=== PATIENT | female | born 1945 | race Caucasian/White ===

== ENCOUNTER 2019-04-21 22:53 | Inpatient (IN) | payer OTHER, MEDICAID ==
[~2019-04-21] VITALS: Ht 157.5 cm; Wt 65.9 kg
[2019-04-21] MEDS ORDERED: DILTIAZEM HCL 25 MG IV ONE (23:07)
[2019-04-21] MEDS ORDERED: DILTIAZEM HCL 25 MG IV IV ONE (23:15)
--- NOTE | 2019-04-21 23:20 | NUR ---
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 PATIENT IS AMBULATORY WITH ROLLING WALKER, ABLE TO SPEAK IN FULL SENTENCES. PLACED PATIENT ON TELE AND O2 MONITOR, EKG DONE.
[2019-04-21 23:30] LABS: BASOPHILS # (AUTO) 0.1 K/uL (0.0-8.0); BASOPHILS % (AUTO) 0.8 % (0.0-2.0); EOSINOPHILS # (AUTO) 0.1 K/uL (0.0-0.7); EOSINOPHILS % (AUTO) 1.4 % (0.0-7.0); HEMOGLOBIN 12.2 g/dL (10.9-14.3); LYMPHOCYTES # (AUTO) 2.4 K/uL (20.0-40.0); LYMPHOCYTES % (AUTO) 32.9 % (20.5-51.5); MEAN CORPUSCULAR HGB CONC 33 g/dL (32.3-35.6); MEAN CORPUSCULAR VOLUME 100.2 fL (75.5-95.3); MONOCYTES # (AUTO) 0.7 K/uL (2.0-10.0); MONOCYTES % (AUTO) 9.6 % (0.0-11.0); NEUTROPHILS # (AUTO) 4.1 K/uL (1.8-8.9); NEUTROPHILS % (AUTO) 55.3 % (38.5-71.5); PLATELET COUNT (AUTO) 180 K/uL (179-408); WHITE BLOOD COUNT (AUTO) 7.4 K/uL (3.8-11.8)
[2019-04-21 23:39] LABS: CARBON DIOXIDE 21 mmol/L (21-32); CHLORIDE 99 mmol/L (98-107); CREATININE 1.4 mg/dL (0.6-1.3); GLUCOSE 108 mg/dL (74-106); POTASSIUM 3.7 mmol/L (3.5-5.1); UREA NITROGEN, BLOOD 20 mg/dL (7-18)
[2019-04-21 23:51] LABS: ALANINE AMINOTRANSFERASE 20 U/L (14-59); ALKALINE PHOSPHATASE 143 U/L (50-136); ASPARTATE AMINOTRANSFERASE 14 U/L (15-37); BILIRUBIN,DIRECT 0.3 mg/dL (0.0-0.2); TOTAL PROTEIN, SERUM 7.6 g/dL (6.4-8.2)
[2019-04-21] MEDS ORDERED: FLUT1BLS IH (23:51)
[2019-04-21] MEDS ORDERED: ALBU8.5H8 IH (23:51)
[2019-04-21] MEDS ORDERED: LOSA1TAB39 PO (23:51)
--- NOTE | 2019-04-22 00:21 | NUR ---
PATIENT AMBULATED TO BATHROOM WITH STAND BY ASSIST, VOIDED 300ML OF MADDIE COLOR URINE.
[2019-04-22 01:21] LABS: *BILIRUBIN,URIN NEGATIVE (NEGATIVE); *BLOOD, URINE NEGATIVE (NEGATIVE); *CLARITY,URINE CLEAR (CLEAR); *COLOR,URINE YELLOW (YELLOW); *KETONES,URINE NEGATIVE (NEGATIVE); *UROBILINOGEN,URINE 0.2 E.U./dl (NORMAL); LEUKOCYTE ESTERASE ,URINE NEGATIVE (NEGATIVE); NITRITE, URINE NEGATIVE (NEGATIVE); PH,URINE 5.5 (5.0-8.0); UGLUCOSE NEGATIVE (NEGATIVE)
[2019-04-22] MEDS ORDERED: ACETAMINOPHEN 325 MG TABLET PO PRN (01:30)
[2019-04-22] MEDS ORDERED: TEMAZEPAM 15 MG CAPSULE PO PRN (01:30)
[2019-04-22] MEDS ORDERED: MAGNESIUM HYDROXIDE 30 ML LIQUID UDC PO PRN (01:30)
[2019-04-22] MEDS ORDERED: ONDANSETRON 4 MG/2 ML VIAL IV PRN (01:30)
[2019-04-22] MEDS ORDERED: DILTIAZEM HCL 25 MG IV IV PRN (01:30)
[2019-04-22] MEDS ORDERED: DILTIAZEM HCL 25 MG IV ONE ×2 (01:42→02:20)
--- NOTE | 2019-04-22 01:48 | NUR ---
5MG DILTIAZEM IVP GIVEN PER VERBAL ORDER FROM DR. CARO.
[2019-04-22] MEDS ORDERED: DILTIAZEM HCL 25 MG IV IV ONE (02:00)
[2019-04-22] MEDS ORDERED: DILTIAZEM HCL 50 MG IV ONE (02:20)
--- NOTE | 2019-04-22 08:00 | NUR ---
AWAKE ALERT AND ORIENTED X3 NO SS OFF SEVERE PAIN, CHEST PAIN WITH CARDIZEM DRIP AT 5MG PER HOUR. ST AT 105/MIN
--- NOTE | 2019-04-22 08:11 | NUR ---
SEE DOWNTIME OVERRIDE PAPER WORK TRANSPORTED AT 0430 A TO ROOM 311 VIA [facility] BY RN ALL BELONGINGS W/ PT
[2019-04-22] MEDS ORDERED: METOPROLOL TARTRATE 25 MG TABLET PO SCH (09:00)
[2019-04-22] MEDS ORDERED: FUROSEMIDE 40 MG/4 ML VIAL IV SCH (09:00)
[2019-04-22] MEDS: METOPROLOL TARTRATE 25 MG TABLET PO SCH ×3 (09:54→21:01)
[2019-04-22] MEDS: ASPIRIN 81 MG TAB.CHEW PO SCH (09:54)
[2019-04-22] MEDS: PIPERACILLIN SODIUM/TAZOBACTAM 3.375 G in IV DEXTROSE 5% 50 ML IV SCH ×2 (11:04→18:03)
[2019-04-22] MEDS: FLUTICASONE/VILANTEROL 1 EACH BLST.W.DEV IH SCH (11:05)
[2019-04-22 12:00] VITALS: BP 117/81
--- NOTE | 2019-04-22 12:00 | NUR ---
SEEN BY DR MON[place] FOR CARDIOLOGY FOLLOW-UP REVIEWED MEDS AND SAID TO DC PANKAJ MONTES AND CONTINUE PANKAJ AND TONY ORDERED
--- NOTE | 2019-04-22 15:52 | NUR ---
CONTINUE NPO STATUS, IV ANTIBIOTICS ZOSYN NO ADVERSE REACTION, REMAINS UNCONTROLLED AFIB ON MONITOR 105-120/MIN
[2019-04-22 16:08] VITALS: BP 121/74
--- NOTE | 2019-04-22 19:30 | NUR ---
SBAR received from overnight stocker nurse. Patient alert and oriented x 2. Patient stated to be homeless from off going nurse, but patient will not speak to it during assessment. Patient on antibiotics. Telemetry maintained for A-Fib with HR <110. No C/O pain or SOB at this time. No skin problems noted at this time. Call light and frequently used items within reach. Will continue to monitor.
[2019-04-22 21:07] VITALS: BP 120/75
[2019-04-23 00:22] VITALS: BP 131/59
[2019-04-23] MEDS: METOPROLOL TARTRATE 25 MG TABLET PO SCH ×2 (02:55→08:40)
[2019-04-23] MEDS: PIPERACILLIN SODIUM/TAZOBACTAM 3.375 G in IV DEXTROSE 5% 50 ML IV SCH ×3 (02:56→18:00)
[2019-04-23] MEDS: HYDROCODONE/APAP 5-325MG TABLET PO PRN ×2 (03:36→16:27)
[2019-04-23 04:19] VITALS: BP 105/50
[2019-04-23 06:21] LABS: BASOPHILS # (AUTO) 0.1 K/uL (0.0-8.0); BASOPHILS % (AUTO) 0.9 % (0.0-2.0); EOSINOPHILS # (AUTO) 0.1 K/uL (0.0-0.7); EOSINOPHILS % (AUTO) 2.1 % (0.0-7.0); HEMATOCRIT 36.6 % (31.2-41.9); HEMOGLOBIN 12.2 g/dL (10.9-14.3); LYMPHOCYTES # (AUTO) 1.5 K/uL (20.0-40.0); LYMPHOCYTES % (AUTO) 21.7 % (20.5-51.5); MEAN CORPUSCULAR HEMOGLOBIN 33.5 uug (24.7-32.8); MEAN CORPUSCULAR HGB CONC 33 g/dL (32.3-35.6); MEAN CORPUSCULAR VOLUME 100.6 fL (75.5-95.3); MONOCYTES # (AUTO) 0.7 K/uL (2.0-10.0); MONOCYTES % (AUTO) 9.9 % (0.0-11.0); NEUTROPHILS # (AUTO) 4.6 K/uL (1.8-8.9); NEUTROPHILS % (AUTO) 65.4 % (38.5-71.5); PLATELET COUNT (AUTO) 192 K/uL (179-408); RED BLOOD CELL COUNT(AUTO) 3.64 MIL/uL (3.63-4.92); WHITE BLOOD COUNT (AUTO) 7.1 K/uL (3.8-11.8)
--- NOTE | 2019-04-23 06:38 | NUR ---
Patient A-Fib with HR ranging from 105-120. Jansen given to aid with abdominal discomfort. IV intact in right wrist 22G. Zosyn given for antibiotic therapy. Call light and frequently used items within reach. Will endorse to oncoming shift accordingly.
[2019-04-23 06:42] LABS: CARBON DIOXIDE 24 mmol/L (21-32); CHLORIDE 103 mmol/L (98-107); CREATININE 1.7 mg/dL (0.6-1.3); GLUCOSE 144 mg/dL (74-106); MAGNESIUM 1.3 mg/dL (1.8-2.4); PHOSPHOROUS 4.2 mg/dL (2.5-4.9); POTASSIUM 3.8 mmol/L (3.5-5.1); UREA NITROGEN, BLOOD 21 mg/dL (7-18)
--- NOTE | 2019-04-23 08:00 | NUR ---
AWAKE ALERT AND ORIENTED X3 NO SS OF PAIN OR DISTRESS REMAINS AFIB UNCONTROLLED IN MONITOR
[2019-04-23] MEDS: FLUTICASONE/VILANTEROL 1 EACH BLST.W.DEV IH SCH (08:39)
[2019-04-23] MEDS: CYANOCOBALAMIN 1000 MCG/ML VIAL IM SCH (08:39)
[2019-04-23] MEDS: ASPIRIN 81 MG TAB.CHEW PO SCH (08:40)
[2019-04-23] MEDS: MAGNESIUM SULFATE/D5W 100 ML IV SCH ×2 (09:06→10:04)
[2019-04-23] MEDS ORDERED: DIGOXIN 250 MCG TABLET PO ONE ×3 (11:00→23:00)
[2019-04-23 11:38] VITALS: BP 114/69
--- NOTE | 2019-04-23 12:00 | NUR ---
SEEN BY DR SMITH FOR FOLLOW-UP NOTED LABS WITH LOW MAGNESIUM SEE NOTES.
--- NOTE | 2019-04-23 14:05 | NUR ---
DISCHARGE PLANNING IN PROCESS, SEE MARBLE SUPERVISOR NOTES
[2019-04-23 14:18] LABS: *BILIRUBIN,URIN NEGATIVE (NEGATIVE); *BLOOD, URINE NEGATIVE (NEGATIVE); *CLARITY,URINE CLEAR (CLEAR); *COLOR,URINE YELLOW (YELLOW); *KETONES,URINE NEGATIVE (NEGATIVE); *UROBILINOGEN,URINE 0.2 E.U./dl (NORMAL); LEUKOCYTE ESTERASE ,URINE 1+ (NEGATIVE); NITRITE, URINE NEGATIVE (NEGATIVE); UGLUCOSE NEGATIVE (NEGATIVE)
[2019-04-23 14:26] LABS: *CREATININE,URINE 57.8 mg/dL (30-125); *URINE TOTAL PROTEIN RANDOM 22.6 mg/dL (<150/24HR)
[2019-04-23] MEDS: METOPROLOL TARTRATE 50 MG TABLET PO SCH ×2 (14:36→21:13)
[2019-04-23] MEDS ORDERED: METOPROLOL TARTRATE 25 MG TABLET PO SCH (15:00)
[2019-04-23 15:08] LABS: SQUAMOUS EPITHELIAL CELL,UR FEW /HPF (NONE SEEN)
[2019-04-23 15:14] VITALS: BP 123/77
--- NOTE | 2019-04-23 19:20 | NUR ---
Received patient lying in bed. AAOX4. In no acute distress. Denies any pain or SOB. IV site on right hand intact and patent. Controlled A. fib on tele at 88/min. Needs assessed and attended to. Safety measure initiated and call dinero within reached.
[2019-04-23 20:29] VITALS: BP 119/82
[2019-04-24] VITALS: BP 108/70
[2019-04-24] MEDS: METOPROLOL TARTRATE 50 MG TABLET PO SCH ×4 (02:15→20:41)
[2019-04-24] MEDS: PIPERACILLIN SODIUM/TAZOBACTAM 3.375 G in IV DEXTROSE 5% 50 ML IV SCH ×3 (02:15→19:32)
[2019-04-24 06:01] LABS: BASOPHILS # (AUTO) 0.1 K/uL (0.0-8.0); BASOPHILS % (AUTO) 0.7 % (0.0-2.0); EOSINOPHILS # (AUTO) 0.1 K/uL (0.0-0.7); EOSINOPHILS % (AUTO) 1.4 % (0.0-7.0); HEMATOCRIT 37.7 % (31.2-41.9); HEMOGLOBIN 12.4 g/dL (10.9-14.3); LYMPHOCYTES # (AUTO) 1.2 K/uL (20.0-40.0); LYMPHOCYTES % (AUTO) 13.9 % (20.5-51.5); MEAN CORPUSCULAR HEMOGLOBIN 32.9 uug (24.7-32.8); MEAN CORPUSCULAR HGB CONC 33 g/dL (32.3-35.6); MONOCYTES # (AUTO) 0.9 K/uL (2.0-10.0); MONOCYTES % (AUTO) 10.3 % (0.0-11.0); NEUTROPHILS # (AUTO) 6.3 K/uL (1.8-8.9); NEUTROPHILS % (AUTO) 73.7 % (38.5-71.5); PLATELET COUNT (AUTO) 193 K/uL (179-408); RED BLOOD CELL COUNT(AUTO) 3.77 MIL/uL (3.63-4.92); WHITE BLOOD COUNT (AUTO) 8.6 K/uL (3.8-11.8)
--- NOTE | 2019-04-24 06:16 | NUR ---
AAOX4. In no acute distress. Complained of lower abdominal pain but tolerable per patient. Denies SOB. IV site on right hand intact and patent. No adverse effect noted from IV ABX. Controlled A. fib on tele at 99/min. Safety measure maintained and call dinero within reached.
[2019-04-24 06:26] LABS: ALANINE AMINOTRANSFERASE 9 U/L (14-59); ALKALINE PHOSPHATASE 102 U/L (50-136); ASPARTATE AMINOTRANSFERASE 9 U/L (15-37); BILIRUBIN,TOTAL 1.3 mg/dL (0.2-1.0); CARBON DIOXIDE 22 mmol/L (21-32); CHLORIDE 102 mmol/L (98-107); CREATINE KINASE, TOTAL 46 U/L (26-192); CREATININE 1.6 mg/dL (0.6-1.3); GLUCOSE 105 mg/dL (74-106); MAGNESIUM 1.7 mg/dL (1.8-2.4); POTASSIUM 4.1 mmol/L (3.5-5.1); TOTAL PROTEIN, SERUM 6.3 g/dL (6.4-8.2); UREA NITROGEN, BLOOD 17 mg/dL (7-18)
[2019-04-24 06:30] VITALS: BP 136/80
--- NOTE | 2019-04-24 08:00 | NUR ---
AWAKE AND ALERT, ORIENTED X3 C/O FEELING NAUSEA AND LOWER ABDOMINAL PAIN. REFUSED BREAKFAST. MEDICATED WITH WITH ZOFRAN WITH TEMPORARY RELIEF. OBSERVED. REMAINS AFIB CONTROLLED
[2019-04-24] MEDS: ASPIRIN 81 MG TAB.CHEW PO SCH (08:34)
[2019-04-24] MEDS: CYANOCOBALAMIN 1000 MCG/ML VIAL IM SCH (08:34)
[2019-04-24] MEDS: FLUTICASONE/VILANTEROL 1 EACH BLST.W.DEV IH SCH (08:41)
[2019-04-24] MEDS ORDERED: FUROSEMIDE 20 MG/2 ML VIAL IV SCH (09:00)
--- NOTE | 2019-04-24 09:00 | NUR ---
SEEN BY DR AVITIA FOR NEPHRO FOLLOW-UP SEE NOTES
[2019-04-24] MEDS ORDERED: MAGNESIUM OXIDE 400 MG TABLET PO ONE (09:30)
[2019-04-24 11:04] VITALS: BP 111/61
--- NOTE | 2019-04-24 13:44 | NUR ---
STILL C/O PAIN 3/10 LOWER ABDOMEN, REFUSED PAIN MEDS AND LUNCH. OBSERVED
[2019-04-24 15:02] VITALS: BP 124/65
--- NOTE | 2019-04-24 17:47 | NUR ---
NO ACUTE PAIN, NAUSEA OR VOMITING. REMAINS CONTROLLED AFIB ON MONITOR
--- NOTE | 2019-04-24 19:30 | NUR ---
RECEIVED PATIENT LYING IN BED, AWAKE. AO X 4. NO ACUTE DISTRESS AT THE MOMENT. NO SOB. DENIES PAIN/ DISCOMFORT. IV ON RIGHT HAND PATENT, INTACT, AND FLUSHING. TELE MONITOR SHOWS CONTROLLED A. FIB. IMMEDIATE NEEDS ATTENDED. SAFETY PROTOCOLS IN PLACE. CALL LIGHT WITHIN REACH. WILL CONTINUE TO MONITOR.
[2019-04-24 20:00] VITALS: BP 109/52
[2019-04-25] VITALS: BP 135/68
[2019-04-25] MEDS: PIPERACILLIN SODIUM/TAZOBACTAM 3.375 G in IV DEXTROSE 5% 50 ML IV SCH (02:56)
[2019-04-25 04:00] VITALS: BP 155/80
--- NOTE | 2019-04-25 05:13 | NUR ---
PATIENT SLEPT THROUGHOUT THE NIGHT. NO COMPLAINTS OF PAIN. VITAL SIGNS WITHIN NORMAL. CONTROLLED A. FIB ON THE TELE MONITOR. WILL ENDORSE TO ONCOMING SHIFT.
--- NOTE | 2019-04-25 08:00 | NUR ---
Received patient awake in bed. AAOx4. IV on R hand intact and patent. In no acute distress. Complaining of pain at this time, but verbalizes she is okay and does not need medication. Safety measures implemented. Will continue to monitor.
[2019-04-25 08:14] LABS: BASOPHILS # (AUTO) 0.1 K/uL (0.0-8.0); BASOPHILS % (AUTO) 0.7 % (0.0-2.0); EOSINOPHILS # (AUTO) 0.2 K/uL (0.0-0.7); EOSINOPHILS % (AUTO) 2.3 % (0.0-7.0); HEMATOCRIT 39.2 % (31.2-41.9); HEMOGLOBIN 12.9 g/dL (10.9-14.3); LYMPHOCYTES # (AUTO) 1.8 K/uL (20.0-40.0); LYMPHOCYTES % (AUTO) 22.5 % (20.5-51.5); MEAN CORPUSCULAR HEMOGLOBIN 32.9 uug (24.7-32.8); MEAN CORPUSCULAR HGB CONC 33 g/dL (32.3-35.6); MONOCYTES # (AUTO) 0.8 K/uL (2.0-10.0); MONOCYTES % (AUTO) 10.1 % (0.0-11.0); NEUTROPHILS # (AUTO) 5.1 K/uL (1.8-8.9); NEUTROPHILS % (AUTO) 64.4 % (38.5-71.5); PLATELET COUNT (AUTO) 180 K/uL (179-408); RED BLOOD CELL COUNT(AUTO) 3.92 MIL/uL (3.63-4.92)
[2019-04-25] MEDS ORDERED: FUROSEMIDE 20 MG TABLET PO SCH (09:00)
[2019-04-25] MEDS: METOPROLOL TARTRATE 50 MG TABLET PO SCH (09:00)
[2019-04-25] MEDS: CYANOCOBALAMIN 1000 MCG/ML VIAL IM SCH (09:22)
[2019-04-25] MEDS: ASPIRIN 81 MG TAB.CHEW PO SCH (09:22)
[2019-04-25] MEDS: FLUTICASONE/VILANTEROL 1 EACH BLST.W.DEV IH SCH (09:22)
[2019-04-25 09:34] LABS: CARBON DIOXIDE 23 mmol/L (21-32); CHLORIDE 102 mmol/L (98-107); CREATININE 1.6 mg/dL (0.6-1.3); GLUCOSE 93 mg/dL (74-106); POTASSIUM 3.7 mmol/L (3.5-5.1); UREA NITROGEN, BLOOD 14 mg/dL (7-18)
[2019-04-25 09:40] LABS: ALANINE AMINOTRANSFERASE 10 U/L (14-59); ALKALINE PHOSPHATASE 87 U/L (50-136); ASPARTATE AMINOTRANSFERASE 10 U/L (15-37); BILIRUBIN,TOTAL 1.1 mg/dL (0.2-1.0); MAGNESIUM 1.7 mg/dL (1.8-2.4); PHOSPHOROUS 4.1 mg/dL (2.5-4.9); TOTAL PROTEIN, SERUM 6.4 g/dL (6.4-8.2)
[2019-04-25 11:04] VITALS: BP 109/56
[2019-04-25] MEDS ORDERED: POTA10CA43 PO (11:08)
[2019-04-25] MEDS ORDERED: MULT1TAB73 PO (11:08)
[2019-04-25] MEDS ORDERED: ACID1TAB4 PO (11:08)
[2019-04-25] MEDS ORDERED: CEPH-570 PO (11:08)
[2019-04-25] MEDS ORDERED: DILT240C88 PO (11:08)
[2019-04-25] MEDS ORDERED: FURO20TA4 PO (11:08)
[2019-04-25] MEDS ORDERED: METO50TA16 PO (11:08)
[2019-04-25] MEDS ORDERED: APIX2.5T PO (11:16)
[2019-04-25] MEDS ORDERED: APIXABAN 5 MG TABLET PO ONE (11:30)
--- NOTE | 2019-04-25 12:45 | NUR ---
Discharge orders in place. Patient accepted at [facility]. Transportation arranged by receiving facility. Educated patient regarding new prescription and importance on continuity of care/following medication regimen. Patient verbalized understanding. Provided resources and referrals. Valuables, medications and contraband returned. Vital signs are stable. No s/s of acute distress. Warm handoff given to receiving facility
[2019-04-28 10:12] LABS: A/G RATIO 0.9 (0.7-1.7); ALBUMIN 2.6 g/dL (2.9-4.4); ALPHA-1-GLOBULIN 0.2 g/dL (0.0-0.4); ALPHA-2-GLOBULIN 0.8 g/dL (0.4-1.0); BETA GLOBULIN 0.9 g/dL (0.7-1.3); M-SPIKE Not Observed g/dL (Not Observed)
== END 2019-04-25 12:45 | disposition home health service (06) | DRG 280 ==
LOC: ER 22:53 → UNDOADMIN 04-22 04:45 → TELE-TD3 04-22 04:45 → TELE3 04-22 04:45 → UNDOADMIN 04-22 08:24 → TELE3 04-22 18:20
PROVIDERS: ADMIT Internal Medicine; ATTEND Internal Medicine
PROC: 3E033RZ Introduction of Antiarrhythmic into Peripheral Vein, Percutaneous Approach (ICD-10-PCS; principal; 2019-04-22)
DX: I48.20 Chronic atrial fibrillation, unspecified (principal); I21.A1 Myocardial infarction type 2; N17.0 Acute kidney failure with tubular necrosis; I50.23 Acute on chronic systolic (congestive) heart failure; K80.00 Calculus of gallbladder with acute cholecystitis without obstruction; D68.59 Other primary thrombophilia; N39.0 Urinary tract infection, site not specified; J98.11 Atelectasis; Z59.0 Homelessness; D25.9 Leiomyoma of uterus, unspecified; Z74.09 Other reduced mobility; Z87.891 Personal history of nicotine dependence; Z86.73 Personal history of transient ischemic attack (TIA), and cerebral infarction without residual deficits; K57.30 Diverticulosis of large intestine without perforation or abscess without bleeding; I08.1 Rheumatic disorders of both mitral and tricuspid valves; J44.9 Chronic obstructive pulmonary disease, unspecified; Z87.440 Personal history of urinary (tract) infections; I11.0 Hypertensive heart disease with heart failure; E03.9 Hypothyroidism, unspecified; G89.29 Other chronic pain; M51.17 Intervertebral disc disorders with radiculopathy, lumbosacral region; M41.9 Scoliosis, unspecified; Z79.51 Long term (current) use of inhaled steroids
CPT/HCPCS: 36415; 70030-TC; 71045; 76604; 76705; 83605; 83735; 83970; 84100; 84155; 84156; 84165; 84300; 84443; 85025; 85730; 87086; 93005; 93307; A4663; G0378; J1940; J2405; J2543; J3420; J3475; J3490; J7050; J7060

== ENCOUNTER 2019-06-09 09:06 | Inpatient (IN) | payer MEDICAID, OTHER ==
[~2019-06-09] VITALS: Ht 152.4 cm; Wt 65.8 kg
[2019-06-09] VITALS (15 sets, daily range): BP systolic 105–138; BP diastolic 62–95
[2019-06-09] MEDS ORDERED: DILTIAZEM HCL 25 MG IV ONE (09:23)
[2019-06-09] MEDS: ASPIRIN 81 MG TAB.CHEW PO ONE ×2 (09:30→09:35)
[2019-06-09] MEDS ORDERED: DILTIAZEM HCL 25 MG IV IV ONE ×2 (09:30→10:00)
[2019-06-09] MEDS ORDERED: ASPIRIN 81 MG TAB.CHEW ONE (09:31)
[2019-06-09 09:39] LABS: BASOPHILS # (AUTO) 0.1 K/uL (0.0-8.0); BASOPHILS % (AUTO) 0.7 % (0.0-2.0); EOSINOPHILS # (AUTO) 0.1 K/uL (0.0-0.7); HEMATOCRIT 41.7 % (31.2-41.9); LYMPHOCYTES # (AUTO) 1.7 K/uL (20.0-40.0); LYMPHOCYTES % (AUTO) 22.2 % (20.5-51.5); MEAN CORPUSCULAR HEMOGLOBIN 33.3 uug (24.7-32.8); MEAN CORPUSCULAR HGB CONC 33 g/dL (32.3-35.6); MEAN CORPUSCULAR VOLUME 99.4 fL (75.5-95.3); MONOCYTES # (AUTO) 0.7 K/uL (2.0-10.0); NEUTROPHILS # (AUTO) 5.1 K/uL (1.8-8.9); NEUTROPHILS % (AUTO) 67.1 % (38.5-71.5); PLATELET COUNT (AUTO) 195 K/uL (179-408); WHITE BLOOD COUNT (AUTO) 7.6 K/uL (3.8-11.8)
[2019-06-09 09:42] LABS: CARBON DIOXIDE 19 mmol/L (21-32); CHLORIDE 99 mmol/L (98-107); CREATININE 1.5 mg/dL (0.6-1.3); GLUCOSE 130 mg/dL (74-106); POTASSIUM 4.4 mmol/L (3.5-5.1); UREA NITROGEN, BLOOD 21 mg/dL (7-18)
[2019-06-09 09:54] LABS: ALANINE AMINOTRANSFERASE 19 U/L (14-59); ALKALINE PHOSPHATASE 141 U/L (50-136); ASPARTATE AMINOTRANSFERASE 16 U/L (15-37); BILIRUBIN,DIRECT 0.6 mg/dL (0.0-0.2); TOTAL PROTEIN, SERUM 8.2 g/dL (6.4-8.2)
--- NOTE | 2019-06-09 09:59 | NUR ---
pt resting, axox4, says feels better.
[2019-06-09] MEDS ORDERED: DILTIAZEM HCL IV 125 MG in IV NORMAL SALINE 100 ML IV STA (10:20)
--- NOTE | 2019-06-09 10:47 | NUR ---
talked to [facility] gave the requested clinincal.
--- NOTE | 2019-06-09 11:39 | NUR ---
pt voided in the bedside commode. urine sent to lab
--- NOTE | 2019-06-09 11:49 | NUR ---
pt transfered to floor in stable condition.
--- NOTE | 2019-06-09 12:30 | NUR ---
ADMIT A 73 FEMALE PT FROM ER VIA [facility], WITH A CHIEF C/O SOB AND CHEST PAIN. HEART HYTHM IS ATRIAL FIB WITH RVR IN THE 130'S TO 140'S. PT IS AWAKE , ALERT AND ORIENTED X3. VERY PLEASANT AND IN GOOD SPIRIT. PT ON CARDIZEM DRIP RUNNING AT 5MG/HR. HR RFA. HR IS PERSISTENTLY AFIB WITH RVR AT THIS TIME. NO C.O CHEST PAINS AT THIS TIME. PT ON O2 AT 3L NC, O2 SAT IS 96-98%. NO APPARENT SOB NOTED. NO COUGHS. LUNS ARE CLES WITH DIMINISHED BS AT THE BASES. NO C/O OF ANY PAIN AT THIS TIME.
--- NOTE | 2019-06-09 13:30 | NUR ---
SEEN AND EXAMINED BY ZEN PINEDA DNP WITH NEW ADMITTING ORDERS.
[2019-06-09] MEDS ORDERED: MAGNESIUM HYDROXIDE 30 ML LIQUID UDC PO PRN (13:45)
[2019-06-09] MEDS ORDERED: methylPREDNISolone SOD SUCC 125 MG/2 ML VIAL IV ONE (13:45)
[2019-06-09] MEDS ORDERED: HYDROCODONE/APAP 5-325MG TABLET PO PRN (13:45)
[2019-06-09] MEDS ORDERED: Z GUARD REMEDY PASTE 57 GM TUBE TOP PRN (13:45)
[2019-06-09] MEDS ORDERED: ACETAMINOPHEN 325 MG TABLET PO PRN (13:45)
[2019-06-09] MEDS ORDERED: ZOLPIDEM 5 MG TABLET PO PRN (13:45)
[2019-06-09] MEDS ORDERED: ONDANSETRON 4 MG/2 ML VIAL IV PRN (13:45)
[2019-06-09 15:05] LABS: *BILIRUBIN,URIN NEGATIVE (NEGATIVE); *BLOOD, URINE NEGATIVE (NEGATIVE); *CLARITY,URINE CLEAR (CLEAR); *COLOR,URINE YELLOW (YELLOW); *KETONES,URINE NEGATIVE (NEGATIVE); *UROBILINOGEN,URINE 0.2 E.U./dl (NORMAL); LEUKOCYTE ESTERASE ,URINE NEGATIVE (NEGATIVE); NITRITE, URINE NEGATIVE (NEGATIVE); UGLUCOSE NEGATIVE (NEGATIVE)
[2019-06-09 15:13] LABS: *AMPHETAMINE, URINE NEGATIVE (NEGATIVE); *BARBITURATE, URINE NEGATIVE (NEGATIVE); *CANNABINOID, URINE NEGATIVE (NEGATIVE); *COCCAINE, URINE NEGATIVE (NEGATIVE); *OPIATE, URINE NEGATIVE (NEGATIVE); *PHENCYCLIDINE SCREEN,URINE NEGATIVE (NEGATIVE)
[2019-06-09 15:45] LABS: MAGNESIUM 1.9 mg/dL (1.8-2.4)
[2019-06-09] MEDS: DILTIAZEM HCL IV 125 MG in IV NORMAL SALINE 100 ML IV PRN ×2 (15:53→20:21)
[2019-06-09] MEDS ORDERED: Medication Not On Formulary EA (Apixaban (Eliquis) 2.5 MG) PO SCH (17:00)
[2019-06-09] MEDS: CARVEDILOL 3.125 MG TABLET PO SCH (17:20)
[2019-06-09] MEDS: ACIDOPHILUS/BULGARICUS CHEW TAB PO SCH (17:20)
[2019-06-09] MEDS: ALBUTEROL SULFATE 2.5 MG/3 ML NEBU NEB PRN (17:27)
[2019-06-09] MEDS: APIXABAN 5 MG TABLET PO SCH (17:32)
--- NOTE | 2019-06-09 19:30 | NUR ---
rounds made patient in bed aaox4,maex4, afib on the heart monitor Cardizem drip in progress and titrated according to protocol .denies chest pain no sob on room air saturation 94 to 96 %.advised to call for assistance and not to get oob alone .
--- NOTE | 2019-06-09 20:30 | NUR ---
assisted oob to the commode ,voided freely ,yellowish urine adequate in amt . escorted abck to bed.
--- NOTE | 2019-06-09 21:36 | NUR ---
placed 02 nasal cannula at 3 l/min when off 02 patient desaturated to 88 to 90%.on 02 at 3 l/min saturation 96 to 98% .hob up
[2019-06-10] VITALS (31 sets, daily range): BP systolic 96–156; BP diastolic 44–100
--- NOTE | 2019-06-10 | NUR ---
sleeping in bed no s/s of respiratory distress tolerating 02 at 3 l/min . saturation 96 to 98 %.v/s wnl . Cardizem drip in progress infusing via the left hand h/l.
--- NOTE | 2019-06-10 02:30 | NUR ---
patient woke up and verbalized she always wakes up at this time .patient asked for jello . given strawberry jello and applejuice patient able to feed self . assisted to the commode voided . assisted with perineal care changed soiled linens and gown and escorted back tot bed .
[2019-06-10 05:57] LABS: BASOPHILS % (AUTO) 0.2 % (0.0-2.0); HEMATOCRIT 39.9 % (31.2-41.9); HEMOGLOBIN 13.3 g/dL (10.9-14.3); LYMPHOCYTES # (AUTO) 0.5 K/uL (20.0-40.0); LYMPHOCYTES % (AUTO) 14.4 % (20.5-51.5); MEAN CORPUSCULAR HEMOGLOBIN 33.1 uug (24.7-32.8); MEAN CORPUSCULAR HGB CONC 33 g/dL (32.3-35.6); MEAN CORPUSCULAR VOLUME 99.1 fL (75.5-95.3); MONOCYTES # (AUTO) 0.1 K/uL (2.0-10.0); MONOCYTES % (AUTO) 1.9 % (0.0-11.0); NEUTROPHILS # (AUTO) 3.1 K/uL (1.8-8.9); NEUTROPHILS % (AUTO) 83.5 % (38.5-71.5); PLATELET COUNT (AUTO) 151 K/uL (179-408); RED BLOOD CELL COUNT(AUTO) 4.03 MIL/uL (3.63-4.92); WHITE BLOOD COUNT (AUTO) 3.7 K/uL (3.8-11.8)
[2019-06-10 06:10] LABS: ALANINE AMINOTRANSFERASE 16 U/L (14-59); ALKALINE PHOSPHATASE 131 U/L (50-136); ASPARTATE AMINOTRANSFERASE 12 U/L (15-37); BILIRUBIN,TOTAL 1.3 mg/dL (0.2-1.0); CARBON DIOXIDE 19 mmol/L (21-32); CHLORIDE 102 mmol/L (98-107); CREATININE 1.5 mg/dL (0.6-1.3); GLUCOSE 199 mg/dL (74-106); PHOSPHOROUS 3.5 mg/dL (2.5-4.9); TOTAL PROTEIN, SERUM 7.7 g/dL (6.4-8.2); UREA NITROGEN, BLOOD 25 mg/dL (7-18)
[2019-06-10 06:19] LABS: THYROID STIMULATING HORMONE 1.252 mIU/mL (0.358-3.740)
[2019-06-10 06:24] LABS: CHOLESTEROL 186 mg/dL (<200); HDL CHOLESTEROL 58 mg/dL (40-60); TRIGLYCERIDES 85 MG/DL (30-150)
[2019-06-10] MEDS: ALBUTEROL SULFATE 2.5 MG/3 ML NEBU NEB PRN ×2 (07:10→20:24)
--- NOTE | 2019-06-10 07:30 | NUR ---
RECIEVED PT IN BED, AWAKE AND ORIENTED X3. IN GOOD SPIRIT AND PT LOVES TO TALK. HR STILL IN AFIB CONTROLLED TO UNCONTROLLED VENTRICULAR RESPONSE. DENIES ANY CHEST PAINS OR SOB. O2 ON 3LNC. SAT 96-98%. CARDIZEM DRIP RUNNING AT 5MG/HR VIA LT FA PATENT AND INTACT. SBP IS HOLDING GOOD. AFEBRILE.
[2019-06-10] MEDS: PANTOPRAZOLE SODIUM 40 MG TABLET.DR PO SCH (07:38)
[2019-06-10] MEDS: CARVEDILOL 3.125 MG TABLET PO SCH ×2 (07:39→17:13)
--- NOTE | 2019-06-10 08:30 | NUR ---
PT ATE GOOD BREAKFAST AND TOLERATED WELL.
[2019-06-10] MEDS ORDERED: Medication Not On Formulary EA (Multivitamins (Multivitamin) 1 EACH) PO SCH (09:00)
[2019-06-10] MEDS ORDERED: FUROSEMIDE 20 MG TABLET PO SCH (09:00)
[2019-06-10] MEDS ORDERED: methylPREDNISolone SOD SUCC 125 MG/2 ML VIAL IV SCH (09:00)
[2019-06-10] MEDS: MULTIVITAMINS,THERAPEUTIC TABLET PO SCH (09:04)
[2019-06-10] MEDS: ACIDOPHILUS/BULGARICUS CHEW TAB PO SCH ×2 (09:05→17:14)
[2019-06-10] MEDS: POTASSIUM CHLORIDE 10 MEQ TAB.PRT.SR PO SCH (09:05)
[2019-06-10] MEDS: FLUTICASONE/VILANTEROL 1 EACH BLST.W.DEV IH SCH (09:06)
[2019-06-10] MEDS: APIXABAN 5 MG TABLET PO SCH ×2 (09:07→17:16)
--- NOTE | 2019-06-10 10:20 | NUR ---
SEEN AND EVALUATED BY PT AT THE BEDSIDE.
--- NOTE | 2019-06-10 12:20 | NUR ---
SEEN AND EXAMINED BY DR ROSARIO WITH NEW ORDERS.
[2019-06-10] MEDS: DILTIAZEM HCL IV 125 MG in IV NORMAL SALINE 100 ML IV PRN (13:55)
--- NOTE | 2019-06-10 17:42 | NUR ---
SEEN AND EXAMINED BY DR SCHMID WITH NEW ORDERS.
--- NOTE | 2019-06-10 18:00 | NUR ---
COREG 3.125MG PO NOT GIVEN ORDERED. D/CD IT.
[2019-06-10] MEDS: FUROSEMIDE 40 MG/4 ML VIAL IV SCH (18:21)
[2019-06-10] MEDS: METOPROLOL TARTRATE 50 MG TABLET PO SCH (18:22)
--- NOTE | 2019-06-10 20:02 | NUR ---
rounds made patient in bed aaox4,maex4, able to verbalized needs .no respiratory distress noted tolerating 02 at 3 l min breathing even and unlabored saturation 98% rr 25.afib on the heart monitor on Cardizem drip t 10 mg/hr infusing via the left hand h/l .denies chest pain or chest discomfort .SCDS to ble used . advised patient to call using the call dinero placed with in reach .
[2019-06-10] MEDS: DILTIAZEM HCL CD 120 MG CAP.SR.24H PO SCH (20:13)
--- NOTE | 2019-06-10 20:20 | NUR ---
assisted oob to the bsc able to stand up steady of gait ,voided patient able to do perineal care .noted sob upon exertion and slight inspiratory wheezing noted ,rr 20 saturation 98% called respiratory therapist and gave patient breathing treatment .
--- NOTE | 2019-06-10 21:00 | NUR ---
off Cardizem drip ,now on Cardizem and metoprolol po continue to monitor bp and heart rhythm ,afib on the heart monitor rate form 70 to 90 occasionally to afib 101 not sustained .
--- NOTE | 2019-06-10 21:15 | NUR ---
assisted with dinner able to feed self only ate 50% fo the dinner tray . due medication given .Cardizem po
--- NOTE | 2019-06-10 22:30 | NUR ---
oob patient wants to used the bedside commode .voided freely . back to bed.connected back to equipment and monitors. call light placed with in reach .
[2019-06-11] VITALS (12 sets, daily range): BP systolic 104–134; BP diastolic 57–87
[2019-06-11] MEDS: METOPROLOL TARTRATE 50 MG TABLET PO SCH ×6 (00:59→21:04)
--- NOTE | 2019-06-11 01:08 | NUR ---
sleeping in bed v/s wnl . no respiratory distress breathing even and unlabored . rr 16 saturation 98% bp 125/77 hr 74 afib
--- NOTE | 2019-06-11 02:44 | NUR ---
patient awakened ,escorted to the bedside commode . voided freely .as per aptfrankn she always wakes up at this time assisted back to be .
--- NOTE | 2019-06-11 03:30 | NUR ---
voided freely via the bedside commode with yellowish urine ,had small to moderated brownish stool soft .patient able to washed self changed soiled linens patient able to do perineal care washed hands .back to bed patient wants to sleep more .
[2019-06-11] MEDS: PANTOPRAZOLE SODIUM 40 MG TABLET.DR PO SCH (06:09)
[2019-06-11 06:23] LABS: BASOPHILS % (AUTO) 0.1 % (0.0-2.0); HEMATOCRIT 37.3 % (31.2-41.9); HEMOGLOBIN 12.3 g/dL (10.9-14.3); LYMPHOCYTES # (AUTO) 0.5 K/uL (20.0-40.0); LYMPHOCYTES % (AUTO) 6.1 % (20.5-51.5); MEAN CORPUSCULAR HEMOGLOBIN 32.6 uug (24.7-32.8); MEAN CORPUSCULAR HGB CONC 33 g/dL (32.3-35.6); MONOCYTES # (AUTO) 0.4 K/uL (2.0-10.0); MONOCYTES % (AUTO) 4.4 % (0.0-11.0); NEUTROPHILS # (AUTO) 7.3 K/uL (1.8-8.9); NEUTROPHILS % (AUTO) 89.4 % (38.5-71.5); PLATELET COUNT (AUTO) 170 K/uL (179-408); RED BLOOD CELL COUNT(AUTO) 3.77 MIL/uL (3.63-4.92); WHITE BLOOD COUNT (AUTO) 8.2 K/uL (3.8-11.8)
[2019-06-11 06:24] LABS: CARBON DIOXIDE 20 mmol/L (21-32); CHLORIDE 102 mmol/L (98-107); CREATININE 1.5 mg/dL (0.6-1.3); GLUCOSE 166 mg/dL (74-106); MAGNESIUM 1.9 mg/dL (1.8-2.4); POTASSIUM 4.1 mmol/L (3.5-5.1); UREA NITROGEN, BLOOD 35 mg/dL (7-18)
--- NOTE | 2019-06-11 06:45 | NUR ---
due medication given metropolol and pantoprazole took with applejuice, afib on the heart monitor HR 81 .
--- NOTE | 2019-06-11 07:30 | NUR ---
RECIEVED PT IN BED, AWAKE, ALERT AND ORIENTEDX3. VERY PLEASANT AND IN GOOD SPIRIT. NO APPARENT RESPIRATORY DISTRESS NOTED. O2 ON 3LNC, SATURATION IS 95-99%. HR STILL ON AFIB WITH RVR TO CONTROLLED VENTRICUALR RESPONSE. NO C/O CP NOTED.
--- NOTE | 2019-06-11 08:30 | NUR ---
SEEN AND EXAMINED BY DR ROSARIO WITH NEW ORDER TO DOWNGRADE PT TO TELEMETRY STATUS.
[2019-06-11] MEDS: POTASSIUM CHLORIDE 10 MEQ TAB.PRT.SR PO SCH (08:53)
[2019-06-11] MEDS: MULTIVITAMINS,THERAPEUTIC TABLET PO SCH (08:53)
[2019-06-11] MEDS: ACIDOPHILUS/BULGARICUS CHEW TAB PO SCH ×2 (08:53→17:04)
[2019-06-11] MEDS: FUROSEMIDE 40 MG/4 ML VIAL IV SCH (08:53)
[2019-06-11] MEDS: DILTIAZEM HCL CD 120 MG CAP.SR.24H PO SCH ×2 (08:54→21:04)
[2019-06-11] MEDS: FLUTICASONE/VILANTEROL 1 EACH BLST.W.DEV IH SCH (08:54)
[2019-06-11] MEDS: APIXABAN 5 MG TABLET PO SCH ×2 (08:55→17:08)
--- NOTE | 2019-06-11 13:30 | NUR ---
CALLED UP 3RD FLOOR TO CHECK FOR RN TO RECIEVE REPORT. UNABLE TO TRANSFER THE PT BECAUSE OF STAFF ASSIGNMENT. HOUSE SUP AWARE.
--- NOTE | 2019-06-11 17:00 | NUR ---
CONDITION IS UNCHANGED.
--- NOTE | 2019-06-11 18:30 | NUR ---
PT TRANSFERED TO TELEMETRY VIA W/C ACCOMPANIED BY RN. CONDITION IS STABLE.
--- NOTE | 2019-06-11 18:50 | NUR ---
received from [facility] per w/c awake alert and oriented, tele -afib 103, on 3l/nc, denies of chest pain, oriented to bed controls, safety measures initiated, needs attended, call light within reach
--- NOTE | 2019-06-11 19:30 | NUR ---
RECEIVED PT AWAKE, ALERT AND ORIENTEDX4. PT IN NO ACUTE DISTRESS. IV INTACT. SAFETY AND COMFORT PROVIDED. WILL CONTINUE TO MONITOR.
[2019-06-12] VITALS: BP 124/83
[2019-06-12 04:00] VITALS: BP 117/75
[2019-06-12] MEDS: PANTOPRAZOLE SODIUM 40 MG TABLET.DR PO SCH (06:17)
[2019-06-12 06:23] LABS: EOSINOPHILS % (AUTO) 0.3 % (0.0-7.0); HEMATOCRIT 40.1 % (31.2-41.9); HEMOGLOBIN 13.1 g/dL (10.9-14.3); LYMPHOCYTES # (AUTO) 1.4 K/uL (20.0-40.0); LYMPHOCYTES % (AUTO) 17.5 % (20.5-51.5); MEAN CORPUSCULAR HEMOGLOBIN 32.4 uug (24.7-32.8); MEAN CORPUSCULAR HGB CONC 33 g/dL (32.3-35.6); MONOCYTES # (AUTO) 0.7 K/uL (2.0-10.0); MONOCYTES % (AUTO) 8.9 % (0.0-11.0); NEUTROPHILS # (AUTO) 5.9 K/uL (1.8-8.9); NEUTROPHILS % (AUTO) 73.3 % (38.5-71.5); PLATELET COUNT (AUTO) 170 K/uL (179-408); RED BLOOD CELL COUNT(AUTO) 4.05 MIL/uL (3.63-4.92)
[2019-06-12 06:30] LABS: CARBON DIOXIDE 25 mmol/L (21-32); CHLORIDE 101 mmol/L (98-107); CREATININE 1.7 mg/dL (0.6-1.3); GLUCOSE 118 mg/dL (74-106); PHOSPHOROUS 4.3 mg/dL (2.5-4.9); POTASSIUM 3.9 mmol/L (3.5-5.1); UREA NITROGEN, BLOOD 40 mg/dL (7-18)
--- NOTE | 2019-06-12 06:30 | NUR ---
PT SLEPT INTERMITTENTLY. PRESCRIBED MEDICATION GIVEN AND PT TOLERATED IT WELL. PT REFUSED HER METOPROLOL MEDICATION. SAFETY AND COMFORT PROVIDED. ALL NEEDS ARE MET. WILL ENDORSE ACCORDINGLY TO INCOMING NURSE FOR CONTINUITY OF CARE.
--- NOTE | 2019-06-12 08:00 | NUR ---
RECEIVED PT AWAKE, ALERT AND ORIENTEDX4. PT IN NO ACUTE DISTRESS OR SOB NOTED. TELE CONTROLLED AFIB. IV INTACT. SAFETY AND COMFORT PROVIDED. WILL CONTINUE TO MONITOR FOR SAFETY AND COMFORT.
[2019-06-12] MEDS: FLUTICASONE/VILANTEROL 1 EACH BLST.W.DEV IH SCH (08:35)
[2019-06-12] MEDS: ACIDOPHILUS/BULGARICUS CHEW TAB PO SCH ×2 (08:39→16:44)
[2019-06-12] MEDS: POTASSIUM CHLORIDE 10 MEQ TAB.PRT.SR PO SCH (08:39)
[2019-06-12] MEDS: MULTIVITAMINS,THERAPEUTIC TABLET PO SCH (08:39)
[2019-06-12] MEDS: APIXABAN 5 MG TABLET PO SCH ×2 (08:48→16:43)
[2019-06-12] MEDS: DILTIAZEM HCL CD 120 MG CAP.SR.24H PO SCH (08:49)
[2019-06-12] MEDS: METOPROLOL TARTRATE 50 MG TABLET PO SCH (08:49)
[2019-06-12] MEDS ORDERED: FUROSEMIDE 40 MG/4 ML VIAL IV SCH (09:00)
[2019-06-12 11:48] VITALS: BP 128/74
--- NOTE | 2019-06-12 12:00 | NUR ---
PT RESTING COMFORTABLY. NO ACUTE DISTRESS OR SOB NOTED. PT IS DIET AND MEDICATION COMPLIANT. PT ON R/A WITH 97% SATS. NO LABORED BREATHING NOTED. BED LOCKED AND IN LOW POSITION. TELE MONITORING CONTROLLED AFIB. WILL CONTINUE TO MONITOR FOR SAFETY AND COMFORT.
[2019-06-12 16:00] VITALS: BP 126/85
[2019-06-12 16:03] VITALS: BP 123/85
--- NOTE | 2019-06-12 18:00 | NUR ---
PT'S DC PACKET HAS BEEN PRINTED. NO ACUTE DISTRESS OR SOB NOTED. BELONGINGS LIST SIGNED. BELONGINGS RETURNED. TELE BOX REMOVED. IV LINE REMOVED INTACT. 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 HOMELESS PACKET GIVEN WITH INSTRUCTIONS FROM MD: f/u with PMD and cardiology in 1 week [id number] [facility] PROGRAM GIVEN [facility] RESOURCES AND REFERRALS GIVEN
--- NOTE | 2019-06-12 19:26 | NUR ---
PT HAS BEEN DISCHARGED. DISCHARGE INSTRUCTIONS GIVEN WITH GOOD UNDERSTANDING. NO ACUTE DISTRESS OR SOB NOTED. BELONGINGS LIST SIGNED. BELONGINGS RETURNED. TELE BOX REMOVED. IV LINE REMOVED INTACT. PT ACCOMPANIED TO MAIN LOBBY BY DAUGHTER ROXI AND GRANDSON. PRESCRIPTIONS SENT TO [facility] OF PT'S PREFERENCE. HOMELESS PACKET GIVEN WITH INSTRUCTIONS FROM MD: f/u with PMD and cardiology in 1 week [id number] [facility] PROGRAM GIVEN [facility] RESOURCES AND REFERRALS GIVEN
== END 2019-06-12 19:30 | disposition home or self-care (01) | DRG 280 ==
LOC: ER 09:06 → CCU 11:35 → TELE3 06-11 19:00
PROVIDERS: ADMIT Hospitalist; ATTEND Hospitalist
PROC: 3E033RZ Introduction of Antiarrhythmic into Peripheral Vein, Percutaneous Approach (ICD-10-PCS; principal; 2019-06-09)
DX: I48.20 Chronic atrial fibrillation, unspecified (principal); N17.0 Acute kidney failure with tubular necrosis; I21.A1 Myocardial infarction type 2; I50.43 Acute on chronic combined systolic (congestive) and diastolic (congestive) heart failure; R65.11 Systemic inflammatory response syndrome (SIRS) of non-infectious origin with acute organ dysfunction; I13.0 Hypertensive heart and chronic kidney disease with heart failure and stage 1 through stage 4 chronic kidney disease, or unspecified chronic kidney disease; J44.1 Chronic obstructive pulmonary disease with (acute) exacerbation; J45.901 Unspecified asthma with (acute) exacerbation; J98.11 Atelectasis; I43 Cardiomyopathy in diseases classified elsewhere; Z59.0 Homelessness; N18.9 Chronic kidney disease, unspecified; M19.90 Unspecified osteoarthritis, unspecified site; Z86.73 Personal history of transient ischemic attack (TIA), and cerebral infarction without residual deficits; M54.40 Lumbago with sciatica, unspecified side; Z79.51 Long term (current) use of inhaled steroids; Z79.01 Long term (current) use of anticoagulants; G89.29 Other chronic pain; F17.210 Nicotine dependence, cigarettes, uncomplicated; D75.89 Other specified diseases of blood and blood-forming organs
CPT/HCPCS: 36415; 70030-TC; 71045; 80307; 83735; 84100; 84443; 85025; 85730; 87086; 87400; 93005; 94640; 94664; A4663; G0378; J1940; J2930; J3490